=== PATIENT | female | born 1930 | race Two or more races ===

== ENCOUNTER 2017-10-24 22:13 | Emergency (ER) | payer SELFPAY ==
[~2017-10-24] VITALS: Ht 152.4 cm; Wt 68.0 kg
[2017-10-24 22:52] LABS: Basophils # (auto) 0 uL; Basophils % (auto) 0.7 % (0.0-2.0); Eosinophils # (auto) 0.1 uL; Eosinophils % (auto) 2.3 % (0.0-7.0); Hematocrit 38.8 % (36.0-46.0); Hemoglobin 12.8 g/dL (12.2-16.2); Lymphocytes # (auto) 1.8 uL; Lymphocytes % (auto) 32.8 % (10.0-50.0); Mean Corpuscular Hemoglobin 27.3 pg (28.0-32.0); Mean Corpuscular Hgb Conc. 33.1 g/dL (32.0-36.0); Mean Corpuscular Volume 82.5 fL (80.0-100.0); Monocytes # (auto) 0.6 uL; Monocytes % (auto) 10.5 % (0.0-12.0); Neutrophils % (auto) 53.7 % (37.0-80.0); Nucleated Red Blood Cells % 0.1 %; Platelet Count (auto) 188 10^3/uL (140-450); Red Cell Distribution Width 16.3 % (11.8-14.3); White Blood Cell 5.6 10^3/uL (4.4-10.8)
[2017-10-24 23:16] LABS: Alanine Aminotransferase 20 U/L (13-56); Albumin 3.7 g/dL (3.4-5.0); Anion Gap 7 (5-15); Aspartate Aminotransferase 22 U/L (15-37); BUN/Creatinine Ratio 26.6; Blood Urea Nitrogen 25 mg/dL (7-18); Carbon Dioxide 24 mmol/L (21-32); Chloride 105 mmol/L (98-107); GFR African American 73 mL/min; GFR Non-African American 60 mL/min; Glucose 93 mg/dL (74-106); Potassium 3.8 mmol/L (3.5-5.1); Sodium 136 mmol/L (136-145)
[2017-10-24 23:19] LABS: Alkaline Phosphatase 134 U/L (45-117); Bilirubin, Total 0.4 mg/dL (0.2-1.0); Total Protein 7.7 g/dL (6.4-8.2)
[2017-10-24 23:43] VITALS: BP 133/68
[2017-10-25 00:01] LABS: Urine Bacteria FEW /hpf (None Seen); Urine Blood Negative /uL (Negative); Urine Specific Gravity 1.013 (1.001-1.035); Urine WBC 33 /hpf (0 - 5)
[2017-10-25] MEDS ORDERED: OMEP20CA74 OR (00:02)
[2017-10-25] MEDS ORDERED: PRAV20TA3 GT (00:02)
[2017-10-25] MEDS ORDERED: ASPI81CH43 GT (00:02)
[2017-10-25] MEDS ORDERED: ENA10T GT (00:02)
[2017-10-25] MEDS ORDERED: LEVO125T66 PO (00:02)
[2017-10-25] MEDS ORDERED: ALPR0.25 PO (00:02)
[2017-10-25] MEDS ORDERED: IOHEXOL 350 MG/ML 100ML IJ ONE (00:55)
[2017-10-25] MEDS ORDERED: SODIUM CHLORIDE 0.9% 1,000 ML IV ONE (01:00)
[2017-10-25] MEDS ORDERED: cefTRIAXone 1GM/10ml IVPUSH 10 ML IV ONE (01:00)
== END 2017-10-25 02:44 | disposition home or self-care (01) ==
LOC: ER 22:13
DX: R42 Dizziness and giddiness (principal); R53.1 Weakness; E78.5 Hyperlipidemia, unspecified; I10 Essential (primary) hypertension; E07.89 Other specified disorders of thyroid; Z90.710 Acquired absence of both cervix and uterus; Z88.8 Allergy status to other drugs, medicaments and biological substances
CPT/HCPCS: 36415; 71045; 71275; 80053; 81001; 83880; 84484; 85025; 85379; 96361; 96374; 99285; Q9967; 93005